=== PATIENT | male | born 1985 | race Caucasian/White ===

== ENCOUNTER → 2020-12-07 | Outpatient (CLI) | payer OTHER | LOC: RAD 12:51 | PROVIDERS: ATTEND Internal Medicine | DX: R06.02 Shortness of breath (principal) ==

== ENCOUNTER → 2021-02-01 | Outpatient (CLI) | payer OTHER ==
--- NOTE | 2021-02-03 13:22 | PFR/MVV ---
[facility] [place] [address] PULMONARY FUNCTION MVV/REPORT Name: DARÍOSAILAJA Room #: REG [facility]#: [id number] Admission: 02/01/21 Attend Phys: Naif Zafar MD Discharge: Date of : 87 Report #: [id number] THIS REPORT FOR: //name// >> SPIROMETRY: (BTPS) Height: in cm Weight: lbs kg Exam Date: PRE-RX POST-RX PRED BEST %PRED BEST %PRED %CHG FVC LITERS . . . . . . FEV1 LITERS . . . . . . FEV1/FVC % . . . . . . GXR07-52% L/Sec . . . . . . PEF L/SEC . . . . . . FEF50/FIF50 UNITLESS . . . . . . MVV L/Min . . . f 1/Min . . . >> LUNG VOLUMES: (BTPS) PRE-RX POST-RX PRED AVG %PRED AVG %PRED %CHG VC Liters . . . . . . TLC Liters . . . . . . RV Liters . . . . . . RV/TLC % . . . . . . FRC PL Liters . . . . . . FRC N2 Liters . . . . . . ERV Liters . . . . . . IC Liters . . . . . . >> DIFFUSION: DLCO ml/Min/mmHg . . . . . . DL Jennifer ml/Min/mmHg . . . . . . DLCO/VA ml/Min/mmHg . . . . . . VA Liters . . . . . . COMMENTS: COMMENTS: >> RESISTANCE: [facility] [address] [place] [address] PULMONARY FUNCTION MVV/REPORT Name: SAILAJA CHANEL [id number] Admission: 02/01/21 Attend Phys: Naif Zafar MD Discharge: Date of : 87 Report #: [id number] PRE-RX PRED AVG %PRED Raw Total cmH20/L/Sec . . . Raw Insp cmH20/L/Sec . . . Raw Exp cmH20/L/Sec . . . Raw cmH20/L/Sec . . . Gaw L/Sec/cmH20 . . . sRaw cmH20 Sec . . . sGaw l/cmH20 Sec . . . Vtq Liters . . . # = OUTSIDE 95% CONFIDENCE INTERVAL CALIBRATION: PRED: 3.00 ACTUAL: EXP 3.01 INSP 3.02 [facility]-OL05-26 [facility] N-1804-4 >> INTERPRETATION/IMPRESSION: DOC #: [id number] cc: MD Camilo Low MD DATE OF SERVICE: 02/01/2021 METHACHOLINE CHALLENGE TEST PreMCT Spirometry showed reduced flows. Following administration of methacholine at the fourth level, FEV1 dropped more than 35% from baseline. Spirometry post-MCT showed flows near baseline. IMPRESSION: Positive methacholine challenge test. Clinical correlation is recommended. MD CHIP BrockK/WANG <ELECTRONICALLY SIGNED> By: Camilo Shelton MD 02/03/21 1322 Camilo Shelton MD /nt
--- NOTE | 2021-02-03 13:22 | PFR/MVV ---
[facility] [place] [address] PULMONARY FUNCTION MVV/REPORT Name: DARÍOSAILAJA Room #: REG [facility]#: [id number] Admission: 02/01/21 Attend Phys: Naif Zafar MD Discharge: Date of : 87 Report #: [id number] THIS REPORT FOR: //name// >> SPIROMETRY: (BTPS) Height: in cm Weight: lbs kg Exam Date: PRE-RX POST-RX PRED BEST %PRED BEST %PRED %CHG FVC LITERS . . . . . . FEV1 LITERS . . . . . . FEV1/FVC % . . . . . . [id number]% L/Sec . . . . . . PEF L/SEC . . . . . . FEF50/FIF50 UNITLESS . . . . . . MVV L/Min . . . f 1/Min . . . >> LUNG VOLUMES: (BTPS) PRE-RX POST-RX PRED AVG %PRED AVG %PRED %CHG VC Liters . . . . . . TLC Liters . . . . . . RV Liters . . . . . . RV/TLC % . . . . . . FRC PL Liters . . . . . . FRC N2 Liters . . . . . . ERV Liters . . . . . . IC Liters . . . . . . >> DIFFUSION: DLCO ml/Min/mmHg . . . . . . DL Jennifer ml/Min/mmHg . . . . . . DLCO/VA ml/Min/mmHg . . . . . . VA Liters . . . . . . COMMENTS: COMMENTS: >> RESISTANCE: [facility] [address] [place] [address] PULMONARY FUNCTION MVV/REPORT Name: SAILAJA CHANEL [facility] [id number] Admission: 02/01/21 Attend Phys: Naif Zafar MD Discharge: Date of : 87 Report #: [id number] PRE-RX PRED AVG %PRED Raw Total cmH20/L/Sec . . . Raw Insp cmH20/L/Sec . . . Raw Exp cmH20/L/Sec . . . Raw cmH20/L/Sec . . . Gaw L/Sec/cmH20 . . . sRaw cmH20 Sec . . . sGaw l/cmH20 Sec . . . Vtq Liters . . . # = OUTSIDE 95% CONFIDENCE INTERVAL CALIBRATION: PRED: 3.00 ACTUAL: EXP 3.[address] [facility]-OL05-26 [facility] N-1804-4 >> INTERPRETATION/IMPRESSION: DOC #: [id number] cc: MD Camilo Low MD DATE OF SERVICE: 02/01/2021 METHACHOLINE CHALLENGE TEST The patient received sequential methacholine concentration up to level 4. At level 4, the patient exhibited drop in FEV1 of more than 35%. PreMCT spirometry showed mildly reduced flows. Post-MCT spirometry showed flows near baseline. IMPRESSION: Positive methacholine challenge test. MD CHIP BrockK/WANG <ELECTRONICALLY SIGNED> By: Camilo Shelton MD 02/03/21 1322 Camilo Shelton MD /nt
== END ==
LOC: PUL 09:07
PROVIDERS: ATTEND Internal Medicine
DX: J45.50 Severe persistent asthma, uncomplicated (principal)

== ENCOUNTER → 2021-02-15 | Outpatient (CLI) | payer OTHER | LOC: CAT 08:27 | PROVIDERS: ATTEND Internal Medicine | DX: J34.2 Deviated nasal septum (principal); J34.89 Other specified disorders of nose and nasal sinuses; J45.50 Severe persistent asthma, uncomplicated; J32.9 Chronic sinusitis, unspecified; Q30.1 Agenesis and underdevelopment of nose ==